=== PATIENT | female | born 1940 | race Caucasian/White ===

== ENCOUNTER 2018-04-01 17:42 | Emergency (ER) | payer MEDICARE, OTHER ==
[~2018-04-01] VITALS: Ht 152.4 cm; Wt 72.6 kg
[2018-04-01] MEDS ORDERED: CALCIUM 600 +1 EA11 PO (17:59)
[2018-04-01] MEDS ORDERED: PROBIOTIC1 EAC2 PO (18:00)
[2018-04-01 18:15] LABS: ABSOLUTE BASOPHILS 0.1 thou/uL (0.0-0.2); ABSOLUTE EOSINOPHILS 0.1 thou/uL (0.0-0.7); ABSOLUTE LYMPHOCYTES 1.3 thou/uL (0.8-5.3); ABSOLUTE MONOCYTES 0.4 thou/uL (0.0-1.2); BASOPHILS 0.8 %; EOSINOPHILS 0.8 %; HEMATOCRIT 40.7 % (37.0-47.0); HEMOGLOBIN 13.3 gm/dL (12.0-15.0); MCH 29.6 pg (26.0-34.0); MCHC 32.6 g/dL (28.0-37.0); MCV 90.8 fL (80.0-100.0); MONOCYTES 5.5 %; NUCLEATED RBCS 0 /100WBC; PLATELET COUNT* 225 thou/uL (150-400); POLYS 75.9 %; RBC 4.48 mil/uL (4.20-5.00); RDW-CV 14.2 % (10.5-14.5); WBC 7.9 thou/uL (4.0-11.0)
[2018-04-01 18:26] LABS: ANION GAP 10 mmol/L (7-16); BUN 19 mg/dL (7-18); CALCIUM 8.4 mg/dL (8.5-10.1); CHLORIDE 104 mmol/L (98-107); CO2 26 mmol/L (21-32); CREATININE 0.9 mg/dL (0.6-1.3); GLUCOSE 121 mg/dL (70-99); POTASSIUM 4.2 mmol/L (3.5-5.1); SODIUM 140 mmol/L (136-145)
[2018-04-01 18:36] LABS: URINE BILIRUBIN NEGATIVE (Negative); URINE BLOOD NEGATIVE (Negative); URINE CLARITY CLEAR; URINE COLOR YELLOW; URINE GLUCOSE-RANDOM NEGATIVE (Negative); URINE KETONES 2+ (Negative); URINE LEUKOCYTES-REFLEX NEGATIVE (Negative); URINE NITRITE-REFLEX NEGATIVE (Negative); URINE PROTEIN NEGATIVE (Negative); URINE UROBILINOGEN 0.2 E.U./dl (0.2-1.0)
[2018-04-01 18:51] LABS: ALBUMIN 3.4 g/dL (3.4-5.0); ALKALINE PHOSPHATASE 58 U/L (46-116); LIPASE 136 U/L (73-393); SGOT 16 U/L (15-37); SGPT 23 U/L (30-65); TOTAL BILIRUBIN 0.4 mg/dL (<0.1-1.0); TROPONIN-I LEVEL <0.06 ng/mL (<0.06)
[2018-04-01] MEDS ORDERED: HYDROCODONE-AP1 EAC6 PO (19:26)
[2018-04-01 20:30] VITALS: BP 151/79
--- NOTE | 2018-04-02 13:20 | EKG ---
[place] [address] ELECTROCARDIOGRAM REPORT Name: JOYCEJAYEROBERTO CARLOS Room: [facility]#: [id number] Admission: 04/01/18 Attend Phys: Discharge: 04/01/18 Date of : 44 Report #: [id number] THIS REPORT FOR: //name// [facility] ED Test Date: 2018-04-01 Test Time: 18:12:59 Pat Name: ROBERTO CARLOS VICTOR Department: Room: Gender: F Remelter: Naomi GRANADO : 1940 Requested By: Ximena Medrano Order Number: [id number] MD: Keny Silva Measurements Intervals [place] Rate: 69 P: 54 ND: 154 QRS: -43 QRSD: 96 T: 32 QT: 429 QTc: 460 Interpretive Statements Sinus arrhythmia Left atrial enlargement Left axis deviation Abnormal R-wave progression, late transition No previous ECG available for comparison Electronically Signed On 04-02-2018 13:20:09 CDT by Keny Silva [email or web address] <ELECTRONICALLY SIGNED> By: Keny Silva MD, [facility] 04/02/18 1320 11 11 Keny Silva MD, FACC /EPI
== END 2018-04-01 20:34 | disposition home or self-care (01) ==
LOC: M.ERS 17:42
PROVIDERS: Physician Assistant
DX: R10.31 Right lower quadrant pain (principal)

== ENCOUNTER 2018-04-02 03:16 | Inpatient (IN) | payer MEDICARE, OTHER ==
[~2018-04-02] VITALS: Ht 152.4 cm; Wt 72.6 kg
[~2018-04-02 03:16] MED LIST: CALCIUM 600 +1 EA11 PO; HYDROCODONE-AP1 EAC6 PO; PROBIOTIC1 EAC2 PO
[2018-04-02 03:27] VITALS: BP 178/83
[2018-04-02 04:17] LABS: ABSOLUTE LYMPHOCYTES 1.4 thou/uL (0.8-5.3); ABSOLUTE MONOCYTES 0.6 thou/uL (0.0-1.2); ABSOLUTE NEUTROPHILS 5.5 thou/uL (1.6-8.1); BASOPHILS 0.6 %; EOSINOPHILS 0.5 %; HEMATOCRIT 40.8 % (37.0-47.0); HEMOGLOBIN 13.3 gm/dL (12.0-15.0); MCH 29.5 pg (26.0-34.0); MCHC 32.6 g/dL (28.0-37.0); MCV 90.7 fL (80.0-100.0); MONOCYTES 7.8 %; NUCLEATED RBCS 0 /100WBC; PLATELET COUNT* 219 thou/uL (150-400); POLYS 72.1 %; WBC 7.6 thou/uL (4.0-11.0)
[2018-04-02 04:28] LABS: CALCIUM 8.5 mg/dL (8.5-10.1); CREATININE 0.7 mg/dL (0.6-1.3); POTASSIUM 3.7 mmol/L (3.5-5.1)
[2018-04-02 04:32] LABS: ALBUMIN 3.3 g/dL (3.4-5.0); TOTAL BILIRUBIN 0.5 mg/dL (<0.1-1.0); TOTAL PROTEIN 6.8 g/dL (6.4-8.2)
[2018-04-02 05:22] LABS: URINE BLOOD NEGATIVE (Negative); URINE CLARITY CLEAR; URINE COLOR YELLOW; URINE GLUCOSE-RANDOM NEGATIVE (Negative); URINE KETONES 1+ (Negative); URINE LEUKOCYTES-REFLEX NEGATIVE (Negative); URINE NITRITE-REFLEX NEGATIVE (Negative); URINE PROTEIN NEGATIVE (Negative); URINE SPECIFIC GRAVITY 1.025 (1.005-1.030); URINE UROBILINOGEN 0.2 E.U./dl (0.2-1.0)
[2018-04-02 05:28] LABS: ICTOTEST (BILI CONFIRMATORY) Negative (Negative); URINE BILIRUBIN 1+ (Negative)
[2018-04-02 07:26] VITALS: BP 166/72
[2018-04-02 08:00] VITALS: BP 142/68; BP 152/69
[2018-04-02 16:16] VITALS: BP 146/65
--- NOTE | 2018-04-02 17:42 | NUR ---
SW met with pt to complete initial assessment. Pt and family bedside. Pt alert, oriented, pleasant. Pt lives at home with and is independent with mobility and ADLs. Pt does not anticipate any dc needs and is hopeful to be able to dc home soon.
[2018-04-02 19:40] VITALS: BP 148/69
[2018-04-03 05:18] LABS: ALBUMIN 2.7 g/dL (3.4-5.0); CALCIUM 7.7 mg/dL (8.5-10.1); CREATININE 0.6 mg/dL (0.6-1.3); MAGNESIUM 1.9 mg/dL (1.8-2.4); POTASSIUM 4.2 mmol/L (3.5-5.1); TOTAL BILIRUBIN 0.4 mg/dL (<0.1-1.0); TOTAL PROTEIN 5.4 g/dL (6.4-8.2)
[2018-04-03 08:00] VITALS: BP 172/87
[2018-04-03 11:34] VITALS: BP 172/87
--- NOTE | 2018-04-03 13:30 | NUR ---
RESUMED CARE THIS AM, A/O, NO DISTRESS NOTED, DISCOMFORT MANAGED WELL WITH MEDICATION, DISCHARGE ORDERS RECEIVED, IV ACCESS REMOVED WITHOUT INCIDENT, DISCHARGE INSTRUCTIONS, FOLLOW UP APPTS, PRESCRIPTION DISCUSSED WITH AND GIVEN TO PATIENT, DENIES QUESTIONS, PERSONAL EFFECTS GATHERED, ACCOUNTED FOR, IN COMPANY OF PATIENT, AMBULATED WITH STAFF TO MAIN ENTRANCE WITH STEADY GAIT, CONDITION STABLE.
--- NOTE | 2018-04-16 16:59 | CON ---
[address] [address] CONSULTATION Name: JOYCEJAYEROBERTO CARLOS Room: [address] M.R.#: [id number] Admission: 04/02/18 Attend Phys: Gray Murguia MD Discharge: 04/03/18 Date of : 44 Report #: [id number] THIS REPORT FOR: //name// CC: Gray Brown DO Cata Coleman DATE OF SERVICE: 04/02/2018 REASON FOR CONSULT: Right lower quadrant abdominal pain and diarrhea. HISTORY OF PRESENT ILLNESS: This is a 77-year-old female who does not have any significant medical history and she takes only vitamins and probiotics. She reports that she went and visited her primary care physician for symptoms of right lower abdominal pain and diarrhea. Since the symptoms got worse, she decided to come to hospital and was admitted. Since admission, she has had blood work and a CT. The CT has been significant for hyperdensity of kidneys bilaterally. This may be significant for nephrocalcinosis. She also reports that her diarrhea has improved, but not resolved. She had only one stool today, which was loose. She denies any hematochezia or melena. She also reports of some nausea, but denies vomiting. She is wondering if her nausea is due to her right lower quadrant abdominal pain. PAST MEDICAL HISTORY: Essentially unremarkable. ALLERGIES: No known drug allergy. MEDICATIONS: Please refer to [facility]. [facility] HISTORY: The patient is , lives at home. Denies tobacco or alcohol use. FAMILY HISTORY: Negative for GI malignancy. PHYSICAL EXAMINATION: VITAL SIGNS: Reveals blood pressure of 152/69, respirations 12, pulse 66, temperature is 97.8. LUNGS: Clear. CARDIOVASCULAR: Regular. ABDOMEN: Soft, mildly tender to palpation in the right lower quadrant. Bowel sounds are positive. LABORATORY DATA: Reveal sodium of 137, potassium 3.7, BUN is 11, creatinine 0.7, glucose 119, AST is 15, ALT 20, alkaline phosphatase is 60, total bilirubin 0.5. WBC 7.6 with hemoglobin of 13.3 and platelet of 219. [place] [address] CONSULTATION Name: ROBERTO CARLOS VICTOR Jhonatan Room: [address]#: [id number] Admission: 04/02/18 Attend Phys: Gray Murguia MD Discharge: 04/03/18 Date of : 44 Report #: [id number] IMAGING: As discussed above. ASSESSMENT AND PLAN: The patient with localized right lower quadrant abdominal pain and diarrhea. Diarrhea has resolved, but the pain is persisting. Per CT, she has bilateral nephrocalcinosis. We will continue monitoring her and if her symptoms do not resolve, we will consider a colonoscopy. The patient reports that her last colonoscopy was in 2007. <ELECTRONICALLY SIGNED> By: Darren Patel MD 04/16/18 [id number] 1933Darren Patel MD /sen
== END 2018-04-03 13:00 | disposition home or self-care (01) | DRG 392 ==
LOC: M.ERS 03:16 → M.3W 05:50 → M.TBA-ER 05:50 → M.3W 07:34
PROVIDERS: Emergency Medicine; Internal Medicine; ADMIT Internal Medicine
DX: R10.31 Right lower quadrant pain (principal); E83.59 Other disorders of calcium metabolism; N29 Other disorders of kidney and ureter in diseases classified elsewhere; J30.2 Other seasonal allergic rhinitis; R19.7 Diarrhea, unspecified; E88.09 Other disorders of plasma-protein metabolism, not elsewhere classified; I10 Essential (primary) hypertension; D25.9 Leiomyoma of uterus, unspecified; M47.896 Other spondylosis, lumbar region